=== PATIENT | female | born 2000 | race Two or more races ===

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

== ENCOUNTER 2022-03-22 03:46 | Emergency (ER) | payer OTHER ==
[~2022-03-22] VITALS: Ht 167.6 cm; Wt 66.2 kg
[~2022-03-22 03:46] MED LIST changes: +MAXFE CAPLET1 EACH PO; +PRENATAL + DHA1 EAC1 PO
[2022-03-22] MEDS ORDERED: ONDANSETRON ODT4 MG PO (07:02)
[2022-03-22] MEDS ORDERED: OSEL75CA PO (07:02)
[2022-03-22] MEDS ORDERED: PEPCID40 MG PO ×3 (07:03)
== END 2022-03-22 07:12 ==
LOC: ER 03:46
DX: O99.512 Diseases of the respiratory system complicating pregnancy, second trimester (principal); Z3A.14 14 weeks gestation of pregnancy; J09.X2 Influenza due to identified novel influenza A virus with other respiratory manifestations; R50.9 Fever, unspecified; Z20.828 Contact with and (suspected) exposure to other viral communicable diseases

== ENCOUNTER 2022-03-22 13:41 | Emergency (ER) | payer OTHER ==
[~2022-03-22] VITALS: Ht 167.6 cm; Wt 66.2 kg
[~2022-03-22 13:41] MED LIST changes: +ONDANSETRON ODT4 MG PO; +OSEL75CA PO; +PEPCID40 MG PO
== END 2022-03-22 18:32 | disposition home or self-care (01) ==
LOC: ER 13:41
DX: O26.892 Other specified pregnancy related conditions, second trimester (principal); M54.9 Dorsalgia, unspecified

== ENCOUNTER 2022-05-11 07:53 | Outpatient (CLI) | payer OTHER | END 2022-05-11 09:06 | disposition home or self-care (01) | LOC: PRENATAL 07:53 | PROVIDERS: ATTEND Obstetrics & Gynecology Maternal & Fetal Medicine | DX: O35.9XX0 Maternal care for (suspected) fetal abnormality and damage, unspecified, not applicable or unspecified (principal); O35.3XX0 Maternal care for (suspected) damage to fetus from viral disease in mother, not applicable or unspecified; O26.879 Cervical shortening, unspecified trimester; Z3A.21 21 weeks gestation of pregnancy ==

== ENCOUNTER 2022-05-16 14:05 | Emergency (ER) | payer OTHER ==
[~2022-05-16] VITALS: Ht 152.4 cm; Wt 56.7 kg
== END 2022-05-16 20:06 | disposition home or self-care (01) ==
LOC: ER 14:05
DX: O26.892 Other specified pregnancy related conditions, second trimester (principal); O20.9 Hemorrhage in early pregnancy, unspecified; Z3A.22 22 weeks gestation of pregnancy

== ENCOUNTER 2022-05-29 12:38 | Emergency (ER) | payer OTHER ==
[~2022-05-29] VITALS: Ht 167.6 cm; Wt 67.1 kg
[2022-05-29] MEDS ORDERED: ZOFRAN8 MG PO (17:15)
[2022-05-29] MEDS ORDERED: PEPCID AC20 MG PO (17:15)
== END 2022-05-29 17:39 | disposition home or self-care (01) ==
LOC: ER 12:38 → EMR PED 12:42 → ER 12:42
DX: O99.612 Diseases of the digestive system complicating pregnancy, second trimester (principal); K92.89 Other specified diseases of the digestive system; Z3A.27 27 weeks gestation of pregnancy; K52.9 Noninfective gastroenteritis and colitis, unspecified; Z91.018 Allergy to other foods

== ENCOUNTER 2022-09-04 09:29 | Outpatient (CLI) | payer OTHER ==
[~2022-09-04] VITALS: Ht 167.6 cm; Wt 71.7 kg
[~2022-09-04 09:29] MED LIST changes: +PEPCID AC20 MG PO; +ZOFRAN8 MG PO
== END 2022-09-04 10:46 | disposition home or self-care (01) ==
LOC: OBS/DEL 09:29
PROVIDERS: ATTEND Obstetrics & Gynecology
DX: O47.1 False labor at or after 37 completed weeks of gestation (principal); Z3A.37 37 weeks gestation of pregnancy; Z91.02 Food additives allergy status

== ENCOUNTER 2022-09-11 05:12 | Inpatient (IN) | payer OTHER ==
[~2022-09-11] VITALS: Ht 167.6 cm; Wt 71.7 kg
== END 2022-09-13 11:53 | disposition home or self-care (01) | DRG 807 ==
LOC: LDR 05:12 → OB/GYN 18:26
PROVIDERS: ADMIT Obstetrics & Gynecology; ATTEND Obstetrics & Gynecology
PROC: 10E0XZZ Delivery of Products of Conception, External Approach (ICD-10-PCS; principal; 2022-09-11)
PROC: 0HQ9XZZ Repair Perineum Skin, External Approach (ICD-10-PCS; 2022-09-11)
PROC: 3E0P7VZ Introduction of Hormone into Female Reproductive, Via Natural or Artificial Opening (ICD-10-PCS; 2022-09-11)
PROC: 3E033VJ Introduction of Other Hormone into Peripheral Vein, Percutaneous Approach (ICD-10-PCS; 2022-09-11)
PROC: 4A1HXCZ Monitoring of Products of Conception, Cardiac Rate, External Approach (ICD-10-PCS; 2022-09-11)
DX: O70.0 First degree perineal laceration during delivery (principal); Z37.0 Single live birth; O99.824 Streptococcus B carrier state complicating childbirth; Z3A.39 39 weeks gestation of pregnancy; Z20.822 Contact with and (suspected) exposure to COVID-19